=== PATIENT | female | born 1950 | race Caucasian/White ===

== ENCOUNTER 2016-10-18 18:26 | Inpatient (IN) | payer MEDICARE, MEDICAID ==
[~2016-10-18] VITALS: Ht 170.2 cm; Wt 103.4 kg
[~2016-10-18 18:26] MED LIST: ACET325T53 PO; ATOR20TA PO; BLOO-360 IN; CALC500T63 PO; CARV6.252 PO; CICL6.6S5 TP; DIGO250T16 PO; DOCU-170 PO; HYDR-3326 PO; HYDR-552 PO; INSU100V10 SQ; LIDO30AD10 TD; MAG-55 PO; MULT-70 PO; NIFE30TA91 PO; OLME40TA3 PO; PANT40TA2 PO; RIVA10TA PO; SENN-2 PO; TRAM50TA PO
[2016-10-18 19:15] LABS: ABG BASE EXCESS 6.9 mmol/L; ABG HCO3 31.6 mmol/L; ABG PH 7.464 (7.350-7.450); ABG PO2 63.7 mmHg (75.0-100.0); ABG SITE RIGHT RADIAL; ABG TOTAL HEMOGLOBIN 12.7 G/dL (12.0-16.0); COHb 1.1 % (0.5-1.5); MetHb 0.2 % (0.0-1.5); O2Hb 92.1 % (94.0-97.0)
[2016-10-18] MEDS ORDERED: methylPREDNISolone SOD SUCC 125 MG/2 ML VIAL IV ONE (19:15)
[2016-10-18] MEDS ORDERED: METRONIDAZOLE 500 MG/NS 100ML 100 ML IV ONE ×2 (19:15→20:52)
[2016-10-18] MEDS ORDERED: VANCOMYCIN IV 1,000 MG in IV DEXTROSE 5% 250 ML IV ONE (19:15)
[2016-10-18] MEDS ORDERED: LEVOFLOXACIN 750MG/D5W 150 ML IV ONE ×2 (19:15→19:37)
[2016-10-18] MEDS ORDERED: QUET100T PO (19:27)
[2016-10-18] MEDS ORDERED: DEXTROSE 50% IV (19:27)
[2016-10-18] MEDS ORDERED: ALBU2.5V13 IH (19:27)
[2016-10-18] MEDS ORDERED: ERYTHROMYCIN PO (19:27)
[2016-10-18] MEDS ORDERED: MAGN400T6 PO (19:27)
[2016-10-18] MEDS ORDERED: INSU100C4 SQ ×2 (19:27)
[2016-10-18] MEDS ORDERED: INSU100I5 SQ ×2 (19:27)
[2016-10-18] MEDS ORDERED: CITA20TA19 PO (19:27)
[2016-10-18] MEDS ORDERED: VALS40TA4 PO (19:27)
[2016-10-18] MEDS ORDERED: LORA-258 PO (19:27)
[2016-10-18] MEDS ORDERED: ACET-2154 PO (19:27)
[2016-10-18] MEDS ORDERED: [UNRECOGNIZED DRUG - CODE] PO (19:27)
[2016-10-18] MEDS ORDERED: MAGN400O4 PO (19:27)
[2016-10-18] MEDS ORDERED: TRAZ-144 PO (19:27)
[2016-10-18] MEDS ORDERED: ZOLP5TAB2 PO (19:27)
[2016-10-18] MEDS ORDERED: RANI150C4 PO (19:27)
[2016-10-18] MEDS ORDERED: LORA-114 PO (19:27)
[2016-10-18] MEDS ORDERED: NIFE30TA2 PO (19:27)
[2016-10-18] MEDS ORDERED: GABA600T PO (19:27)
[2016-10-18] MEDS ORDERED: CALC-272 PO (19:27)
[2016-10-18] MEDS ORDERED: methylPREDNISolone SOD SUCC 125 MG/2 ML VIAL ONE (19:33)
[2016-10-18] MEDS ORDERED: VANCOMYCIN IV 200 ML ONE (19:37)
[2016-10-18 19:44] LABS: BASOPHILS % (AUTO) 0.3 % (0.0-2.0); EOSINOPHILS % (AUTO) 0.1 % (0.0-7.0); HEMATOCRIT 38.9 % (31.2-41.9); HEMOGLOBIN 12.9 g/dL (10.9-14.3); LYMPHOCYTES # (AUTO) 0.5 K/uL (20.0-40.0); LYMPHOCYTES % (AUTO) 3.9 % (20.5-51.5); MEAN CORPUSCULAR HEMOGLOBIN 29.9 uug (24.7-32.8); MEAN CORPUSCULAR HGB CONC 33 g/dL (32.3-35.6); MEAN CORPUSCULAR VOLUME 89.8 fL (75.5-95.3); MONOCYTES # (AUTO) 0.8 K/uL (2.0-10.0); MONOCYTES % (AUTO) 6.8 % (0.0-11.0); NEUTROPHILS # (AUTO) 10.7 K/uL (1.8-8.9); NEUTROPHILS % (AUTO) 88.9 % (38.5-71.5); PLATELET COUNT (AUTO) 290 K/uL (179-408); RED BLOOD CELL COUNT(AUTO) 4.33 MIL/uL (3.63-4.92); RED CELL DISTRIBUTION WIDTH 12.3 % (12.3-17.7)
[2016-10-18 19:52] LABS: CALCIUM 9.4 mg/dL (8.5-10.1); POTASSIUM 4.5 mmol/L (3.5-5.1)
[2016-10-18 19:58] LABS: BAND % (MANUAL) 8 % (0-10); LYMPHOCYTES % (MANUAL) 5 % (20-40); MONOCYTES % (MANUAL) 10 % (2-10); NEUTROPHILS % (MANUAL) 77 % (42-75)
[2016-10-18 19:59] LABS: PLATELET ESTIMATE ADEQUATE; TROPONIN I < 0.017 ng/mL (0.00-0.056)
[2016-10-18 20:02] LABS: LACTIC ACID 1.1 mmol/L (0.4-2.0)
[2016-10-18 20:04] LABS: ALBUMIN 2.3 g/dL (3.4-5.0); BILIRUBIN,DIRECT 0.2 mg/dL (0.0-0.2); BILIRUBIN,TOTAL 0.6 mg/dL (0.2-1.0); TOTAL PROTEIN, SERUM 8.4 g/dL (6.4-8.2)
[2016-10-18 22:07] LABS: ABG HCO3 23.8 mmol/L; ABG PCO2 36.1 mmHg (35.0-45.0); ABG PH 7.437 (7.350-7.450); ABG PO2 211.6 mmHg (75.0-100.0); ABG SITE RIGHT RADIAL; ABG TOTAL HEMOGLOBIN 13.3 G/dL (12.0-16.0); COHb 0.9 % (0.5-1.5); MetHb 0.3 % (0.0-1.5); O2Hb 98.6 % (94.0-97.0); VENT MODE BIPAP
--- NOTE | 2016-10-18 22:11 | NUR ---
Call placed to [facility] for panel call.
[2016-10-18] MEDS: IV NORMAL SALINE 1000 ML BAG IV ONE ×2 (22:15→23:34)
--- NOTE | 2016-10-18 22:28 | NUR ---
PLACED PATIENT ON BIPAP, ORDERED BY DR. POLLOCK. SETTINGS 12/5, RATE 12, FIO2 100%. PROTECTA GEL IS PLACED ON PATIENT, MASK ADJUSTED, ALARMS ON AND AUDIBLE. TITRATED FIO2 TO 50% AFTER ABG, 211.6 PO2. WILL CONTINUE TO MONITOR PATIENT.
[2016-10-18] MEDS ORDERED: INSULIN REGULAR, HUMAN 300 UNITS/3 ML VIAL SQ PRN (22:30)
[2016-10-18] MEDS ORDERED: INSULIN REGULAR, HUMAN 300 UNIT/3 ML VIAL SQ PRN (22:30)
[2016-10-18] MEDS ORDERED: LEVOFLOXACIN 500 MG/D5W 100 ML IV SCH (22:30)
[2016-10-18] MEDS ORDERED: ENOXAPARIN SODIUM 40 MG/0.4 ML DISP.SYRIN SQ SCH (22:30)
[2016-10-18] MEDS ORDERED: ONDANSETRON 4 MG/2 ML VIAL IV PRN (22:30)
[2016-10-18] MEDS ORDERED: MAGNESIUM HYDROXIDE 30 ML LIQUID UDC PO PRN (22:30)
[2016-10-18] MEDS ORDERED: Z GUARD REMEDY PASTE 57 GM TUBE TOP PRN (22:30)
[2016-10-18] MEDS ORDERED: ACETAMINOPHEN 325 MG TABLET PO PRN (22:30)
[2016-10-18] MEDS ORDERED: DEXTROSE 50% 50 ML DISP.SYRIN IV PRN ×2 (22:30→23:30)
[2016-10-18] MEDS ORDERED: TEMAZEPAM 7.5 MG CAPSULE PO PRN (22:30)
[2016-10-18] MEDS ORDERED: LORATADINE 10 MG TABLET PO SCH (22:45)
[2016-10-18] MEDS ORDERED: CALCIUM CARBONATE 500 MG TAB.CHEW PO PRN (22:45)
[2016-10-18] MEDS ORDERED: IPRATROPIUM BROMIDE 0.5 MG/2.5 ML NEBU NEB PRN (22:45)
[2016-10-18] MEDS ORDERED: LORAZEPAM 0.5 MG TABLET PO SCH (22:45)
--- NOTE | 2016-10-18 22:53 | NUR ---
Pt. admitted to CCU , under care of Dr. Browne. Dx: [place] PNA Belongs List completed
[2016-10-18 23:20] VITALS: BP 138/61
--- NOTE | 2016-10-18 23:35 | NUR ---
Spoke to Dr. Browne for clarification of admission orders. First dose of Levaquin to start tomorrow night 10/19 at 2100 since it was first administered in ER this evening at approximately 2100. OK to DC normal saline bolus of 3,[address] Edwards, ER-MD, and to continue maintenance fluids as ordered when admitted to CCU. Accu-checks to be done q6hrs due to NPO status beginning at 10/19 at 0000
--- NOTE | 2016-10-18 23:43 | NUR ---
TRANSPORTED PT FROM ER TO CCU W/ NON REBREATHER MASK AT 15L. PLACED BACK ON BIPAP. NO COMPLICATIONS DURING AND AFTER TRANSPORT. SPO2 95%. ORAL CARE DONE. GAVE REPORT TO TOMASA AKHTAR. HERMILO WILL CONTINUE TO MONITOR PATIENT.
[2016-10-19] VITALS (22 sets, daily range): BP systolic 106–159; BP diastolic 42–113
[2016-10-19] MEDS ORDERED: IOHEXOL 350 100 ML INFUS..BTL ONE (00:16)
[2016-10-19] MEDS ORDERED: IV NORMAL SALINE 250 ML IV ONE (00:16)
[2016-10-19] MEDS: BLOOD SUGAR DIAGNOSTIC 1 EACH STRIP VI SCH ×5 (00:58→23:32)
[2016-10-19] MEDS: INSULIN REGULAR, HUMAN 300 UNIT/3 ML VIAL SQ PRN ×6 (01:00→23:33)
[2016-10-19] MEDS ORDERED: ENOXAPARIN SODIUM 40 MG/0.4 ML DISP.SYRIN SQ ONE (01:09)
[2016-10-19] MEDS: HYDROCODONE/APAP 5-325MG TABLET PO PRN ×3 (01:10→17:05)
[2016-10-19] MEDS ORDERED: LORAZEPAM 0.5 MG TABLET ONE (01:18)
[2016-10-19] MEDS ORDERED: HYDROCODONE/APAP 5-325MG TABLET ONE (01:19)
[2016-10-19] MEDS: IPRATROPIUM BROMIDE 0.5 MG/2.5 ML NEBU NEB SCH ×4 (01:50→19:09)
[2016-10-19] MEDS: ALBUTEROL SULFATE 2.5 MG/3 ML NEBU NEB SCH ×2 (01:50→07:17)
[2016-10-19] MEDS ORDERED: IPRATROPIUM BROMIDE 0.5 MG/2.5 ML NEBU ONE (01:51)
[2016-10-19] MEDS ORDERED: INSULIN REGULAR, HUMAN 300 UNIT/3 ML VIAL SQ ONE (02:00)
--- NOTE | 2016-10-19 02:00 | NUR ---
Notified MD of critically high blood glucose level (including re-check) as well as persistent high critical blood sugar level 1 hour post-insulin administration. Orders received and implemented. See eMAR.
--- NOTE | 2016-10-19 02:28 | NUR ---
Removed from pyxis: Lovenox 40 mg at 10/19 0109 Ativan 0.5 mg 10/19 0118 [place] 5-325 tab 10/19 at 0119 Administered as ordered. See eMAR
--- NOTE | 2016-10-19 03:16 | NUR ---
Despite numerous attempts to convince patient to allow Bender Catheter insertion, patient continues to refuse. Education provided of risks/benefits, patient still continues to refuse.
[2016-10-19] MEDS ORDERED: MEROPENEM 1 G VIAL IV ONE (03:34)
[2016-10-19 05:19] LABS: BASOPHILS % (AUTO) 0.1 % (0.0-2.0); EOSINOPHILS # (AUTO) 0.1 K/uL (0.0-0.7); HEMATOCRIT 40.2 % (31.2-41.9); HEMOGLOBIN 13.5 g/dL (10.9-14.3); LYMPHOCYTES # (AUTO) 0.4 K/uL (20.0-40.0); LYMPHOCYTES % (AUTO) 4.3 % (20.5-51.5); MEAN CORPUSCULAR HEMOGLOBIN 30.3 uug (24.7-32.8); MEAN CORPUSCULAR HGB CONC 34 g/dL (32.3-35.6); MEAN CORPUSCULAR VOLUME 90.5 fL (75.5-95.3); MONOCYTES # (AUTO) 0.1 K/uL (2.0-10.0); MONOCYTES % (AUTO) 1.3 % (0.0-11.0); NEUTROPHILS # (AUTO) 9.6 K/uL (1.8-8.9); NEUTROPHILS % (AUTO) 93.3 % (38.5-71.5); PLATELET COUNT (AUTO) 331 K/uL (179-408); RED BLOOD CELL COUNT(AUTO) 4.44 MIL/uL (3.63-4.92); RED CELL DISTRIBUTION WIDTH 12.8 % (12.3-17.7); WHITE BLOOD COUNT (AUTO) 10.2 K/uL (3.8-11.8)
[2016-10-19 05:33] LABS: ALBUMIN 2.2 g/dL (3.4-5.0); BILIRUBIN,TOTAL 0.5 mg/dL (0.2-1.0); CALCIUM 9.2 mg/dL (8.5-10.1); CREATININE 1.3 mg/dL (0.6-1.3); MAGNESIUM 3.2 mg/dL (1.8-2.4); PHOSPHOROUS 4.4 mg/dL (2.5-4.9); TOTAL PROTEIN, SERUM 8.5 g/dL (6.4-8.2)
[2016-10-19 05:54] LABS: DIGOXIN 3.1 ng/mL (0.9-2.0)
[2016-10-19] MEDS ORDERED: MEROPENEM IV SCH (06:00)
[2016-10-19] MEDS ORDERED: DEXTROSE 5% IV SCH (06:00)
--- NOTE | 2016-10-19 07:20 | NUR ---
report received from Brannon HICKMAN. 66 y old female. here for pneumonia. patient awake, able to erbalize needs. on BIPAP machine for desaturation and hypoxemia. afebrile. IV fluid infusing at 75ml/hr via right hand IV site. is incontinent of urine. diaper on. ekg sinus rhythm, bp stable. Addendum: 10/19/16 at 1441 by MELLY WATTS RN Amended: Links added.
--- NOTE | 2016-10-19 07:29 | NUR ---
Pt rec'd on BIPAP settings IPAP 12, EPAP 5, resp. rate 12 and FIO2-50%. No resp. distress noted at this time. BVM at bedside. Pt to be continuously monitored throughout the shift. BIPAP Vision alarm parameters have been checked and remain audible.
[2016-10-19] MEDS ORDERED: BLOOD SUGAR DIAGNOSTIC 1 EACH STRIP VI SCH ×3 (07:30→20:00)
--- NOTE | 2016-10-19 07:30 | NUR ---
seen by dr austin md inserted a midline catheter #20 via right upper arm. orders received. aware of patient's high blood sugars. Addendum: 10/19/16 at 1444 by MELLY WATTS RN Amended: Links added.
[2016-10-19] MEDS ORDERED: Z GUARD REMEDY PASTE 57 GM TUBE TOP PRN (08:00)
--- NOTE | 2016-10-19 08:00 | NUR ---
placed on 1st step select air mattress, repositioned. bony prominences off loaded Addendum: 10/19/16 at 1508 by MELLY WATTS RN Amended: Links added. Addendum: 10/19/16 at 1513 by MELLY WATTS RN Amended: Links added. Addendum: 10/19/16 at 1515 by MELLY WATTS RN Amended: Links added.
--- NOTE | 2016-10-19 08:30 | NUR ---
seen by dr manriquez. orders received. suárez catheter inserted aseptically/ urine spec sent to lab for tests. us of the kidneys was also ordered by . Addendum: 10/19/16 at 1513 by MELLY WATTS RN Amended: Links added. Addendum: 10/19/16 at 1515 by MELLY WATTS RN Amended: Links added.
[2016-10-19] MEDS ORDERED: DIGOXIN 250 MCG TABLET PO SCH (09:00)
[2016-10-19] MEDS ORDERED: Medication Not On Formulary EA (Gabapentin (Neurontin) 600 MG) PO SCH (09:00)
[2016-10-19] MEDS: PANTOPRAZOLE SODIUM 40 MG VIAL IV SCH (09:13)
[2016-10-19] MEDS: DOCUSATE SODIUM 100 MG CAPSULE PO SCH ×2 (09:13→17:05)
[2016-10-19] MEDS: CARVEDILOL 6.25 MG TABLET PO SCH ×2 (09:14→17:00)
[2016-10-19] MEDS: GABAPENTIN 300 MG CAPSULE PO SCH ×3 (09:14→16:59)
[2016-10-19] MEDS: Z GUARD REMEDY PASTE 57 GM TUBE TOP SCH ×2 (09:15→21:41)
[2016-10-19] MEDS: CALCIUM CARB/VITAMIN D 250MG-125UNITS TABLET PO SCH ×2 (09:15→17:05)
[2016-10-19] MEDS: VALSARTAN 40 MG TABLET PO SCH (09:15)
[2016-10-19] MEDS ORDERED: LORATADINE 10 MG TABLET PO PRN (09:34)
[2016-10-19 09:39] LABS: ABG BASE EXCESS -3.8 mmol/L; ABG HCO3 20.3 mmol/L; ABG PCO2 33.8 mmHg (35.0-45.0); ABG PH 7.396 (7.350-7.450); ABG PO2 57.8 mmHg (75.0-100.0); ABG SITE RIGHT RADIAL; ABG TOTAL HEMOGLOBIN 11.9 G/dL (12.0-16.0); COHb 0.8 % (0.5-1.5); MetHb 0.5 % (0.0-1.5); O2Hb 86.6 % (94.0-97.0); VENT MODE Nasal Cannula
--- NOTE | 2016-10-19 09:49 | NUR ---
Per ABG results pt placed on 10L S/M. RN NR aware and notified.
[2016-10-19] MEDS: LIDOCAINE 5% PATCH TD SCH (10:14)
--- NOTE | 2016-10-19 10:16 | NUR ---
levemir insulin 20units started at/ accucheck 428 Addendum: 10/19/16 at 1452 by MELLY WATTS RN Amended: Links added. Addendum: 10/19/16 at 1457 by MELLY WATTS RN Amended: Links added. Addendum: 10/19/16 at 1504 by MELLY WATTS RN Amended: Links added. Addendum: 10/19/16 at 1508 by MELLY WATTS RN Amended: Links added. Addendum: 10/19/16 at 1513 by MELLY WATTS RN Amended: Links added. Addendum: 10/19/16 at 1515 by MELLY WATTS RN Amended: Links added.
[2016-10-19] MEDS: INSULIN DETEMIR 300 UNIT/3 ML CARTRIDGE SQ SCH ×2 (10:20→21:40)
[2016-10-19] MEDS ORDERED: LORAZEPAM 0.5 MG TABLET PO PRN (10:45)
--- NOTE | 2016-10-19 11:00 | NUR ---
seen by dr manley. orders received. o2 sat to maintain >92%. patient on 10l mask Addendum: 10/19/16 at 1504 by MELLY WATTS RN Amended: Links added. Addendum: 10/19/16 at 1508 by MELLY WATTS RN Amended: Links added. Addendum: 10/19/16 at 1513 by MELLY WATTS RN Amended: Links added. Addendum: 10/19/16 at 1515 by MELLY WATTS RN Amended: Links added.
--- NOTE | 2016-10-19 11:33 | NUR ---
Clinical Pharmacy Note: Vancomycin Dosing per Pharmacy Subjective: Vancomycin IV to start on this 66 yo female for PNA (waiting for MD note). Patient received vancomycin 1gm IVPB x1 yesterday at 1930 in ED Objective: BUN 47/Scr 1.3 WBC 10.2 Temperature 97.6 ht 5'7'' wt 229lb Assessment/Plan: Will start vancomycin 1500mg IVB q24h for predicted vancomycin trough level of 15 mcg/ml at steady state. First dose is due today at 1600. Will draw a vancomycin trough level prior to the 4th dose of vancomycin (level not yet ordered). Will monitor renal function and adjust vancomycin dose, if needed, should renal function change significantly. Will follow daily.
--- NOTE | 2016-10-19 12:33 | NUR ---
accucheck 436, covered with 10 units humulin R sq/ dr avila informed of current order for mild insulin sliding scale. MD changed order to aggressive insulin sliding scale Addendum: 10/19/16 at 1457 by MELLY WATTS RN Amended: Links added. Addendum: 10/19/16 at 1504 by MELLY WATTS RN Amended: Links added. Addendum: 10/19/16 at 1508 by MELLY WATTS RN Amended: Links added. Addendum: 10/19/16 at 1513 by MELLY WATTS RN Amended: Links added. Addendum: 10/19/16 at 1515 by MELLY WATTS RN Amended: Links added.
[2016-10-19 12:50] LABS: *BILIRUBIN,URIN NEGATIVE (NEGATIVE); *BLOOD, URINE NEGATIVE (NEGATIVE); *CLARITY,URINE CLEAR (CLEAR); *COLOR,URINE YELLOW (YELLOW); *KETONES,URINE TRACE (NEGATIVE); *PROTEIN,URINE NEGATIVE (NEGATIVE); *UROBILINOGEN,URINE 0.2 E.U./dl (NORMAL); LEUKOCYTE ESTERASE ,URINE NEGATIVE (NEGATIVE); NITRITE, URINE NEGATIVE (NEGATIVE); PH,URINE 5.5 (5.0-8.0); UGLUCOSE TRACE (NEGATIVE)
[2016-10-19] MEDS: CITALOPRAM 20 MG TABLET PO SCH (12:51)
[2016-10-19 13:00] LABS: *CREATININE,URINE 68.7 mg/dL (30-125); *URINE TOTAL PROTEIN RANDOM 19.6 mg/dL (<150/24HR)
[2016-10-19] MEDS: QUETIAPINE FUMARATE 100 MG TABLET PO SCH ×2 (13:01→17:06)
[2016-10-19] MEDS ORDERED: INSULIN REGULAR, HUMAN 300 UNIT/3 ML VIAL SQ PRN (13:30)
[2016-10-19] MEDS ORDERED: DEXTROSE 50% 50 ML DISP.SYRIN IV PRN ×2 (13:30→20:00)
[2016-10-19] MEDS: ALBUTEROL SULFATE 2.5 MG/ 0.5 ML NEBU NEB SCH ×2 (13:32→19:09)
[2016-10-19] MEDS ORDERED: MEROPENEM 1 G in IV NORMAL SALINE 100 ML IV SCH (13:36)
[2016-10-19 13:40] LABS: BACTERIA,URINE FEW /HPF (NONE SEEN); RBC,URINE 0-3 /HPF (0-3); SQUAMOUS EPITHELIAL CELL,UR MODERATE /HPF (NONE SEEN); WBC,URINE 0-3 /HPF (0-3)
[2016-10-19] MEDS: MEROPENEM 1 G in IV NORMAL SALINE 100 ML IV SCH ×2 (13:51→22:44)
--- NOTE | 2016-10-19 14:55 | NUR ---
Pt titrated down to 6LPM simple mask at this time. SpO2-97%. No resp. distress noted.
--- NOTE | 2016-10-19 15:14 | NUR ---
abgs done on 5l nc. po2 57 sat 86%. placed on simple mask 10liters/min Addendum: 10/19/16 at 1515 by MELLY WATTS RN Amended: Links added.
--- NOTE | 2016-10-19 16:00 | NUR ---
complete pm care done, maribel applied to sacral area for protection. Addendum: 10/19/16 at 1857 by MELLY WATTS RN Amended: Links added. Addendum: 10/19/16 at 185 by MELLY WATTS RN Amended: Links added.
[2016-10-19] MEDS: VANCOMYCIN IV 1,500 MG in IV DEXTROSE 5% 500 ML IV SCH (16:07)
[2016-10-19] MEDS: RIVAROXABAN 10 MG TABLET PO SCH (17:02)
[2016-10-19] MEDS ORDERED: LEVOFLOXACIN 500 MG/D5W 500 MG in PREMIXED 1 EACH IV SCH (18:00)
--- NOTE | 2016-10-19 18:00 | NUR ---
call to dr austin teixeira persistent hyperglycemia. orders received to increase accucheck to q4hrs, levimir to 20 units am and hs. 20 units humulin given for accucheck 470. Addendum: 10/19/16 at 1859 by MELLY WATTS RN Amended: Links added.
[2016-10-19] MEDS: IV NS 1000 ML 1,000 ML IV PRN ×2 (19:10)
--- NOTE | 2016-10-19 19:14 | NUR ---
Patient received on 6Lpm O2 via SM. Increased to 8L Spo2 94% per order to maintain above 92%. Facemask treatment administered. Will continue to monitor.
[2016-10-19] MEDS ORDERED: ZOLPIDEM 5 MG TABLET PO SCH (21:00)
[2016-10-19] MEDS ORDERED: ENOXAPARIN SODIUM 40 MG/0.4 ML DISP.SYRIN SQ SCH (21:00)
[2016-10-19] MEDS ORDERED: INSULIN DETEMIR 300 UNIT/3 ML CARTRIDGE SQ SCH (21:00)
[2016-10-19] MEDS: ATORVASTATIN 20 MG TABLET PO SCH (21:34)
[2016-10-19] MEDS: TRAZODONE 50 MG TABLET PO SCH (21:35)
[2016-10-19] MEDS: SENNOSIDES/DOCUSATE SODIUM TABLET PO SCH (21:35)
[2016-10-19] MEDS: LEVOFLOXACIN 500 MG/D5W 100 ML IV SCH (21:35)
[2016-10-19] MEDS: NIFEdipine XL 30 MG TABSR PO SCH (21:41)
[2016-10-20] VITALS (12 sets, daily range): BP systolic 101–124; BP diastolic 44–61
[2016-10-20] MEDS: ALBUTEROL SULFATE 2.5 MG/ 0.5 ML NEBU NEB SCH ×4 (01:06→19:30)
[2016-10-20] MEDS: IPRATROPIUM BROMIDE 0.5 MG/2.5 ML NEBU NEB SCH ×4 (01:07→19:30)
[2016-10-20] MEDS: BLOOD SUGAR DIAGNOSTIC 1 EACH STRIP VI SCH ×5 (04:08→20:00)
[2016-10-20] MEDS: INSULIN REGULAR, HUMAN 300 UNIT/3 ML VIAL SQ PRN ×5 (04:10→21:41)
[2016-10-20 05:38] LABS: BASOPHILS # (AUTO) 0.1 K/uL (0.0-8.0); BASOPHILS % (AUTO) 1.1 % (0.0-2.0); HEMATOCRIT 34.4 % (31.2-41.9); HEMOGLOBIN 11.3 g/dL (10.9-14.3); LYMPHOCYTES # (AUTO) 0.5 K/uL (20.0-40.0); LYMPHOCYTES % (AUTO) 4.6 % (20.5-51.5); MEAN CORPUSCULAR HEMOGLOBIN 29.3 uug (24.7-32.8); MEAN CORPUSCULAR HGB CONC 33 g/dL (32.3-35.6); MEAN CORPUSCULAR VOLUME 89.5 fL (75.5-95.3); MONOCYTES # (AUTO) 0.6 K/uL (2.0-10.0); MONOCYTES % (AUTO) 5.3 % (0.0-11.0); NEUTROPHILS # (AUTO) 9.8 K/uL (1.8-8.9); PLATELET COUNT (AUTO) 308 K/uL (179-408); RED BLOOD CELL COUNT(AUTO) 3.84 MIL/uL (3.63-4.92); RED CELL DISTRIBUTION WIDTH 12.4 % (12.3-17.7)
[2016-10-20 05:39] LABS: ALBUMIN 1.7 g/dL (3.4-5.0); BILIRUBIN,TOTAL 0.2 mg/dL (0.2-1.0); CALCIUM 8.3 mg/dL (8.5-10.1); CREATININE 1.2 mg/dL (0.6-1.3); MAGNESIUM 3.3 mg/dL (1.8-2.4); PHOSPHOROUS 3.7 mg/dL (2.5-4.9); POTASSIUM 5.1 mmol/L (3.5-5.1); TOTAL PROTEIN, SERUM 6.8 g/dL (6.4-8.2)
[2016-10-20] MEDS: MEROPENEM 1 G in IV NORMAL SALINE 100 ML IV SCH ×3 (06:20→22:00)
[2016-10-20] MEDS: ALBUTEROL SULFATE 2.5 MG/3 ML NEBU NEB PRN ×2 (07:04→12:32)
--- NOTE | 2016-10-20 08:00 | NUR ---
Dr. Browne in the unit to examine patient, report given see orders.
[2016-10-20] MEDS: PANTOPRAZOLE SODIUM 40 MG VIAL IV SCH (08:28)
[2016-10-20] MEDS: DOCUSATE SODIUM 100 MG CAPSULE PO SCH ×2 (08:28→16:18)
[2016-10-20] MEDS: CARVEDILOL 6.25 MG TABLET PO SCH ×2 (08:29→16:19)
[2016-10-20] MEDS: CITALOPRAM 20 MG TABLET PO SCH (08:29)
[2016-10-20] MEDS: GABAPENTIN 300 MG CAPSULE PO SCH ×3 (08:29→16:18)
[2016-10-20] MEDS: QUETIAPINE FUMARATE 100 MG TABLET PO SCH ×2 (08:30→16:18)
[2016-10-20] MEDS: CALCIUM CARB/VITAMIN D 250MG-125UNITS TABLET PO SCH ×2 (08:30→16:19)
[2016-10-20] MEDS ORDERED: GUAIFENESIN/CODEINE 5 ML LIQUID UDC PO PRN (08:30)
[2016-10-20] MEDS: Z GUARD REMEDY PASTE 57 GM TUBE TOP SCH ×2 (08:30→21:35)
[2016-10-20] MEDS: VALSARTAN 40 MG TABLET PO SCH (08:36)
[2016-10-20] MEDS: INSULIN DETEMIR 300 UNIT/3 ML CARTRIDGE SQ SCH ×2 (08:43→21:40)
[2016-10-20] MEDS: LIDOCAINE 5% PATCH TD SCH (08:56)
[2016-10-20 09:21] LABS: ABG BASE EXCESS 0.1 mmol/L; ABG HCO3 25.2 mmol/L; ABG PCO2 42.9 mmHg (35.0-45.0); ABG PH 7.387 (7.350-7.450); ABG PO2 72.4 mmHg (75.0-100.0); ABG SITE RIGHT RADIAL; ABG TOTAL HEMOGLOBIN 12.3 G/dL (12.0-16.0); MetHb 0.4 % (0.0-1.5); O2Hb 93.2 % (94.0-97.0); VENT MODE COOL AEROSOL 40%
--- NOTE | 2016-10-20 11:07 | NUR ---
Dr. [facility] in the unit to examine patient, report given, see orders.
--- NOTE | 2016-10-20 11:43 | NUR ---
Report given to linn Rn. Patient taken up to room 209. AAOx3. left resting comfortably on room 209 receiving rn and deputy prosecuting attorney. in the room.
--- NOTE | 2016-10-20 12:00 | NUR ---
Report received.Pt received via bed from CCU.Pt is awake,alert,oriented x4.Moves all extremities.Denies pain,discomfort.O2 at 6liters via simple facial mask tolerated well.SR on telemetry.Oriented to new room,call light.Plan of care updated with patient.
[2016-10-20] MEDS: HYDROCODONE/APAP 5-325MG TABLET PO PRN ×2 (13:29→21:24)
--- NOTE | 2016-10-20 14:55 | NUR ---
Clinical Pharmacy Note: Vancomycin Dosing per Pharmacy Subjective: Vancomycin IV to start on this 66 yo female for PNA (waiting for MD note). Objective: BUN 59/Scr 1.2 WBC 11 Temperature 98.7 ht 5'7'' wt 229lb Assessment/Plan: Will continue vancomycin 1500mg IVB q24h for predicted vancomycin trough level of 15 mcg/ml at steady state. Second dose was due today at 1600. Will draw a vancomycin trough level prior to the 4th dose of vancomycin (level not yet ordered). Will monitor renal function and adjust vancomycin dose, if needed, should renal function change significantly. Will follow daily.
[2016-10-20] MEDS: VANCOMYCIN IV 1,500 MG in IV DEXTROSE 5% 500 ML IV SCH (16:16)
[2016-10-20 17:41] LABS: CALCIUM 8.3 mg/dL (8.5-10.1); CREATININE 1.2 mg/dL (0.6-1.3); POTASSIUM 4.5 mmol/L (3.5-5.1)
[2016-10-20] MEDS: ATORVASTATIN 20 MG TABLET PO SCH (21:16)
[2016-10-20] MEDS: LACTOBACILLUS RHAMNOSUS GG 1 EACH CAPSULE PO SCH (21:16)
[2016-10-20] MEDS: NIFEdipine XL 30 MG TABSR PO SCH (21:17)
[2016-10-20] MEDS: RIVAROXABAN 10 MG TABLET PO SCH (21:19)
[2016-10-20] MEDS: LEVOFLOXACIN 500 MG/D5W 100 ML IV SCH (21:19)
[2016-10-20] MEDS: SENNOSIDES/DOCUSATE SODIUM TABLET PO SCH (21:24)
[2016-10-20] MEDS: TRAZODONE 50 MG TABLET PO SCH (21:34)
[2016-10-21] MEDS: IPRATROPIUM BROMIDE 0.5 MG/2.5 ML NEBU NEB SCH ×4 (00:55→19:21)
[2016-10-21] MEDS: ALBUTEROL SULFATE 2.5 MG/ 0.5 ML NEBU NEB SCH ×4 (00:55→19:21)
[2016-10-21 04:00] VITALS: BP 144/95
[2016-10-21] MEDS: BLOOD SUGAR DIAGNOSTIC 1 EACH STRIP VI SCH ×7 (04:18→23:55)
--- NOTE | 2016-10-21 06:00 | NUR ---
PT ALERT,ORIENTED, DENIES ANY PAIN, PRODUCTIVE COUGH ALL NIGHT WITH HHN ATC, SAAVEDRA DRAINING WELL, NO LEAKING NOTED ,BUT PT C/O OF FEELING WET AROUND THE CATHETER. CONTINUE WITH IV FLUIDS, SINUS RHYTHM ON MONITOR.ALL NEEDS ATTENDED,REPOSITIONED FOR COMFORT.CALL LIGHT AT REACHED KEPT ON MASK 6 LITERS NO ACUTE DISTRESS.
[2016-10-21 06:09] LABS: BASOPHILS % (AUTO) 0.1 % (0.0-2.0); EOSINOPHILS % (AUTO) 0.2 % (0.0-7.0); HEMATOCRIT 34.6 % (31.2-41.9); HEMOGLOBIN 11.6 g/dL (10.9-14.3); LYMPHOCYTES # (AUTO) 0.7 K/uL (20.0-40.0); MEAN CORPUSCULAR HEMOGLOBIN 30.1 uug (24.7-32.8); MEAN CORPUSCULAR HGB CONC 34 g/dL (32.3-35.6); MEAN CORPUSCULAR VOLUME 89.9 fL (75.5-95.3); MONOCYTES % (AUTO) 8.6 % (0.0-11.0); NEUTROPHILS # (AUTO) 9.5 K/uL (1.8-8.9); NEUTROPHILS % (AUTO) 85.1 % (38.5-71.5); PLATELET COUNT (AUTO) 329 K/uL (179-408); RED BLOOD CELL COUNT(AUTO) 3.85 MIL/uL (3.63-4.92); RED CELL DISTRIBUTION WIDTH 12.9 % (12.3-17.7); WHITE BLOOD COUNT (AUTO) 11.2 K/uL (3.8-11.8)
[2016-10-21] MEDS: PANTOPRAZOLE SODIUM 40 MG TABLET.DR PO SCH (06:44)
[2016-10-21] MEDS: MEROPENEM 1 G in IV NORMAL SALINE 100 ML IV SCH ×3 (06:45→22:24)
[2016-10-21] MEDS: GABAPENTIN 300 MG CAPSULE PO SCH ×3 (08:42→17:34)
[2016-10-21] MEDS: QUETIAPINE FUMARATE 100 MG TABLET PO SCH ×2 (08:42→17:34)
[2016-10-21] MEDS: DOCUSATE SODIUM 100 MG CAPSULE PO SCH ×2 (08:43→17:34)
[2016-10-21] MEDS: VALSARTAN 40 MG TABLET PO SCH (08:43)
[2016-10-21] MEDS: LACTOBACILLUS RHAMNOSUS GG 1 EACH CAPSULE PO SCH ×2 (08:43→20:42)
[2016-10-21] MEDS: CALCIUM CARB/VITAMIN D 250MG-125UNITS TABLET PO SCH ×2 (08:43→17:34)
[2016-10-21] MEDS: CARVEDILOL 6.25 MG TABLET PO SCH ×2 (08:44→17:34)
[2016-10-21] MEDS: CITALOPRAM 20 MG TABLET PO SCH (08:44)
[2016-10-21] MEDS: Z GUARD REMEDY PASTE 57 GM TUBE TOP SCH ×2 (08:45→20:42)
[2016-10-21] MEDS: LIDOCAINE 5% PATCH TD SCH (08:45)
[2016-10-21] MEDS: INSULIN DETEMIR 300 UNIT/3 ML CARTRIDGE SQ SCH ×2 (08:53→20:32)
[2016-10-21] MEDS: INSULIN REGULAR, HUMAN 300 UNIT/3 ML VIAL SQ PRN ×4 (09:17→20:35)
[2016-10-21] MEDS: ALBUTEROL SULFATE 2.5 MG/3 ML NEBU NEB PRN (10:17)
[2016-10-21] MEDS: methylPREDNISolone SOD SUCC 40 MG/ML VIAL IV SCH (10:25)
[2016-10-21 12:00] VITALS: BP 133/63
[2016-10-21] MEDS: HYDROCODONE/APAP 5-325MG TABLET PO PRN ×2 (12:06→18:32)
--- NOTE | 2016-10-21 12:28 | NUR ---
PT REQUESTED METAMUCIL, OK PER DR. WYATT
[2016-10-21] MEDS: PSYLLIUM SEED PACKET PO SCH (12:54)
[2016-10-21 15:48] LABS: *BILIRUBIN,URIN NEGATIVE (NEGATIVE); *BLOOD, URINE 3+ (NEGATIVE); *CLARITY,URINE SLIGHTLY HAZY (CLEAR); *COLOR,URINE YELLOW (YELLOW); *KETONES,URINE NEGATIVE (NEGATIVE); *PROTEIN,URINE NEGATIVE (NEGATIVE); *UROBILINOGEN,URINE 0.2 E.U./dl (NORMAL); NITRITE, URINE NEGATIVE (NEGATIVE); UGLUCOSE NEGATIVE (NEGATIVE)
[2016-10-21 15:49] VITALS: BP 144/73
[2016-10-21 15:49] LABS: LEUKOCYTE ESTERASE ,URINE TRACE (NEGATIVE)
[2016-10-21 15:55] LABS: BACTERIA,URINE RARE /HPF (NONE SEEN); RBC,URINE 20-50 /HPF (0-3); SQUAMOUS EPITHELIAL CELL,UR FEW /HPF (NONE SEEN)
[2016-10-21] MEDS: RIVAROXABAN 10 MG TABLET PO SCH (17:39)
[2016-10-21 19:00] VITALS: BP 149/73
--- NOTE | 2016-10-21 19:04 | NUR ---
PT IS LAYING IN BED COMFORTABLY. MASK IS ON 10L. NO S/S OF RESPIRATORY DISTRESS NOTED. NO PAIN REPORTED. MIDLINE IS INTACT/PATENT. ALL SAFETY NEEDS ARE MET. SAAVEDRA IS DRAINS YELLOW CLEAR URINE.
--- NOTE | 2016-10-21 20:00 | NUR ---
RECEIVED PATIENT ASLEEP ,ON O2 10L/M VIA SIMPLE MASK, SPO2 95-98% , HOB ELEVATED,PATIENT COUGHING PRODUCTIVELY, BEDSIDE PULSE OX MONITOR ,SR,SB ON TELE MONITOR.MONITOR QT INTERVAL WNL
[2016-10-21] MEDS: LEVOFLOXACIN 500 MG/D5W 100 ML IV SCH (20:41)
[2016-10-21] MEDS: SENNOSIDES/DOCUSATE SODIUM TABLET PO SCH (20:42)
[2016-10-21] MEDS: ATORVASTATIN 20 MG TABLET PO SCH (20:42)
[2016-10-21] MEDS: NIFEdipine XL 30 MG TABSR PO SCH (20:43)
[2016-10-21] MEDS: TRAZODONE 50 MG TABLET PO SCH (20:43)
[2016-10-21] MEDS: GUAIFENESIN/DEXTROMETHORPHAN 5 ML UDC PO PRN (23:56)
--- NOTE | 2016-10-22 | NUR ---
PATIENT SLEEP INTERMITTENTLY, GOOD URINE OUT PUT,CONTINUE MONITOR BLOOD SUGAR Q 4H,PATIENT DENIES PAIN/DISCOMFORT,ROBITUSSIN MEDICATED FOR COUGH WITH GOOD RESULT.
[2016-10-22] MEDS: INSULIN REGULAR, HUMAN 300 UNIT/3 ML VIAL SQ PRN ×7 (00:02→23:54)
[2016-10-22 00:16] VITALS: BP 127/66
[2016-10-22] MEDS: ALBUTEROL SULFATE 2.5 MG/ 0.5 ML NEBU NEB SCH ×4 (01:20→20:06)
[2016-10-22] MEDS: IPRATROPIUM BROMIDE 0.5 MG/2.5 ML NEBU NEB SCH ×4 (01:20→20:06)
[2016-10-22] MEDS: BLOOD SUGAR DIAGNOSTIC 1 EACH STRIP VI SCH ×6 (04:13→23:52)
[2016-10-22 04:26] VITALS: BP 147/71
[2016-10-22] MEDS: GUAIFENESIN/DEXTROMETHORPHAN 5 ML UDC PO PRN ×3 (05:29→21:27)
[2016-10-22] MEDS: MEROPENEM 1 G in IV NORMAL SALINE 100 ML IV SCH ×3 (05:47→22:07)
[2016-10-22] MEDS: HYDROCODONE/APAP 5-325MG TABLET PO PRN (05:56)
[2016-10-22] MEDS: PANTOPRAZOLE SODIUM 40 MG TABLET.DR PO SCH (05:56)
--- NOTE | 2016-10-22 06:00 | NUR ---
PATIENT C/O PERINEAL PAIN, AND BURNING SENSATION,NOR[place] 5-325 MG 1 TAB ADMIN FOR PAIN.PATIENT BREATHING BETTER ,STILL WITH WET COUGH,CONTINUE O2 10 L/M VIA SIMPLE MASK.
[2016-10-22 07:03] LABS: CALCIUM 8.1 mg/dL (8.5-10.1); CREATININE 0.8 mg/dL (0.6-1.3); POTASSIUM 4.6 mmol/L (3.5-5.1)
[2016-10-22 07:47] LABS: EOSINOPHILS % (AUTO) 0.3 % (0.0-7.0); HEMATOCRIT 35.7 % (31.2-41.9); HEMOGLOBIN 11.8 g/dL (10.9-14.3); LYMPHOCYTES # (AUTO) 0.9 K/uL (20.0-40.0); LYMPHOCYTES % (AUTO) 12.1 % (20.5-51.5); MEAN CORPUSCULAR HEMOGLOBIN 29.9 uug (24.7-32.8); MEAN CORPUSCULAR HGB CONC 33 g/dL (32.3-35.6); MEAN CORPUSCULAR VOLUME 90.7 fL (75.5-95.3); MONOCYTES # (AUTO) 0.7 K/uL (2.0-10.0); MONOCYTES % (AUTO) 10.4 % (0.0-11.0); NEUTROPHILS # (AUTO) 5.5 K/uL (1.8-8.9); NEUTROPHILS % (AUTO) 77.2 % (38.5-71.5); PLATELET COUNT (AUTO) 300 K/uL (179-408); RED BLOOD CELL COUNT(AUTO) 3.94 MIL/uL (3.63-4.92); RED CELL DISTRIBUTION WIDTH 12.9 % (12.3-17.7)
[2016-10-22 07:49] LABS: WHITE BLOOD COUNT (AUTO) 7.1 K/uL (3.8-11.8)
[2016-10-22] MEDS: Z GUARD REMEDY PASTE 57 GM TUBE TOP SCH ×2 (09:00→21:28)
[2016-10-22] MEDS: CARVEDILOL 6.25 MG TABLET PO SCH ×2 (09:00→17:41)
[2016-10-22] MEDS: methylPREDNISolone SOD SUCC 40 MG/ML VIAL IV SCH (10:50)
[2016-10-22] MEDS: DOCUSATE SODIUM 100 MG CAPSULE PO SCH ×2 (10:51→17:40)
[2016-10-22] MEDS: CITALOPRAM 20 MG TABLET PO SCH (10:51)
[2016-10-22] MEDS: LACTOBACILLUS RHAMNOSUS GG 1 EACH CAPSULE PO SCH ×2 (10:52→21:21)
[2016-10-22] MEDS: VALSARTAN 40 MG TABLET PO SCH (10:53)
[2016-10-22] MEDS: CALCIUM CARB/VITAMIN D 250MG-125UNITS TABLET PO SCH ×2 (10:54→17:41)
[2016-10-22] MEDS: QUETIAPINE FUMARATE 100 MG TABLET PO SCH ×2 (10:54→17:41)
[2016-10-22] MEDS: PSYLLIUM SEED PACKET PO SCH (10:54)
[2016-10-22] MEDS: GABAPENTIN 300 MG CAPSULE PO SCH ×3 (10:54→17:41)
[2016-10-22] MEDS: LIDOCAINE 5% PATCH TD SCH (10:56)
[2016-10-22] MEDS: INSULIN DETEMIR 300 UNIT/3 ML CARTRIDGE SQ SCH ×2 (10:59→20:36)
[2016-10-22 11:43] VITALS: BP 125/72
[2016-10-22 15:28] VITALS: BP 148/76
[2016-10-22] MEDS: RIVAROXABAN 10 MG TABLET PO SCH (17:42)
[2016-10-22 19:52] VITALS: BP 146/74
[2016-10-22] MEDS ORDERED: LEVOFLOXACIN 500 MG TABLET PO SCH (21:00)
[2016-10-22] MEDS: ATORVASTATIN 20 MG TABLET PO SCH (21:21)
[2016-10-22] MEDS: TRAZODONE 50 MG TABLET PO SCH (21:22)
[2016-10-22] MEDS: SENNOSIDES/DOCUSATE SODIUM TABLET PO SCH (21:28)
[2016-10-22] MEDS: NIFEdipine XL 30 MG TABSR PO SCH (21:28)
[2016-10-23] MEDS: ALBUTEROL SULFATE 2.5 MG/ 0.5 ML NEBU NEB SCH ×4 (00:47→19:38)
[2016-10-23] MEDS: IPRATROPIUM BROMIDE 0.5 MG/2.5 ML NEBU NEB SCH ×4 (00:48→19:38)
[2016-10-23] MEDS: HYDROCODONE/APAP 5-325MG TABLET PO PRN (01:55)
[2016-10-23] MEDS: BLOOD SUGAR DIAGNOSTIC 1 EACH STRIP VI SCH ×4 (04:32→16:18)
[2016-10-23] MEDS: INSULIN REGULAR, HUMAN 300 UNIT/3 ML VIAL SQ PRN ×3 (04:34→17:13)
[2016-10-23 05:19] VITALS: BP 143/73
--- NOTE | 2016-10-23 06:00 | NUR ---
end of shift report:patient tolerated o2 at 4l/m via nasal cannula,no sob, still occ cough non productively, Robitussin Dm given ,received breathing tx by RT with good result.patient c/o remains feeling tired/weakness.
[2016-10-23] MEDS: PANTOPRAZOLE SODIUM 40 MG TABLET.DR PO SCH (06:37)
[2016-10-23] MEDS: MEROPENEM 1 G in IV NORMAL SALINE 100 ML IV SCH ×2 (06:37→14:16)
[2016-10-23] MEDS: GUAIFENESIN/DEXTROMETHORPHAN 5 ML UDC PO PRN ×2 (07:43→18:47)
[2016-10-23 07:50] LABS: BASOPHILS % (AUTO) 0.1 % (0.0-2.0); EOSINOPHILS # (AUTO) 0.1 K/uL (0.0-0.7); EOSINOPHILS % (AUTO) 0.7 % (0.0-7.0); LYMPHOCYTES # (AUTO) 1.3 K/uL (20.0-40.0); LYMPHOCYTES % (AUTO) 15.3 % (20.5-51.5); MEAN CORPUSCULAR HGB CONC 33 g/dL (32.3-35.6); MEAN CORPUSCULAR VOLUME 89.9 fL (75.5-95.3); MONOCYTES # (AUTO) 0.7 K/uL (2.0-10.0); MONOCYTES % (AUTO) 8.1 % (0.0-11.0); NEUTROPHILS # (AUTO) 6.3 K/uL (1.8-8.9); NEUTROPHILS % (AUTO) 75.8 % (38.5-71.5); PLATELET COUNT (AUTO) 328 K/uL (179-408); RED BLOOD CELL COUNT(AUTO) 4.01 MIL/uL (3.63-4.92); RED CELL DISTRIBUTION WIDTH 12.7 % (12.3-17.7); WHITE BLOOD COUNT (AUTO) 8.4 K/uL (3.8-11.8)
[2016-10-23 08:08] LABS: CALCIUM 8.7 mg/dL (8.5-10.1); CREATININE 0.7 mg/dL (0.6-1.3); POTASSIUM 4.9 mmol/L (3.5-5.1)
[2016-10-23] MEDS: methylPREDNISolone SOD SUCC 40 MG/ML VIAL IV SCH (08:48)
[2016-10-23] MEDS: INSULIN DETEMIR 300 UNIT/3 ML CARTRIDGE SQ SCH (08:51)
[2016-10-23] MEDS: CITALOPRAM 20 MG TABLET PO SCH (09:37)
[2016-10-23] MEDS: DOCUSATE SODIUM 100 MG CAPSULE PO SCH ×2 (09:37→17:01)
[2016-10-23] MEDS: VALSARTAN 40 MG TABLET PO SCH (09:38)
[2016-10-23] MEDS: LACTOBACILLUS RHAMNOSUS GG 1 EACH CAPSULE PO SCH (09:38)
[2016-10-23] MEDS: PSYLLIUM SEED PACKET PO SCH (09:38)
[2016-10-23] MEDS: CARVEDILOL 6.25 MG TABLET PO SCH ×2 (09:38→17:03)
[2016-10-23] MEDS: LIDOCAINE 5% PATCH TD SCH (09:39)
[2016-10-23] MEDS: GABAPENTIN 300 MG CAPSULE PO SCH ×3 (09:39→17:03)
[2016-10-23] MEDS: QUETIAPINE FUMARATE 100 MG TABLET PO SCH ×2 (09:39→17:03)
[2016-10-23] MEDS: Z GUARD REMEDY PASTE 57 GM TUBE TOP SCH (09:39)
[2016-10-23] MEDS: CALCIUM CARB/VITAMIN D 250MG-125UNITS TABLET PO SCH ×2 (09:39→17:03)
[2016-10-23 11:13] VITALS: BP 129/70
--- NOTE | 2016-10-23 12:56 | NUR ---
Discharge: The patient's son would like for her to return to [facility][[address] [facility],[address];[phone]] once medically cleared. She has been residing at [facility] for about a year and a half. Spoke to Hermilo from [facility] and they will re-admit the patient once stable.
[2016-10-23 15:16] VITALS: BP 135/80
[2016-10-23] MEDS ORDERED: DIGO125T5 PO (16:35)
[2016-10-23] MEDS ORDERED: ALBU2.5V7 NEB (16:35)
[2016-10-23] MEDS ORDERED: HYDR-3326 PO (16:35)
[2016-10-23] MEDS ORDERED: LACT1CAP57 PO (16:35)
[2016-10-23] MEDS ORDERED: LORA-114 PO (16:35)
[2016-10-23] MEDS ORDERED: IPRA0.2S6 NEB (16:35)
[2016-10-23] MEDS ORDERED: Psyllium Seed PO (16:35)
[2016-10-23] MEDS ORDERED: METH4TAB3 PO (16:35)
[2016-10-23] MEDS ORDERED: INSU100V10 SQ (16:49)
[2016-10-23] MEDS ORDERED: LEVO500T15 PO (16:49)
[2016-10-23] MEDS: RIVAROXABAN 10 MG TABLET PO SCH (17:05)
--- NOTE | 2016-10-23 19:00 | NUR ---
REPORT CALLED TO ARNALDO HICKMAN AT [facility]. MIDLINE IV D/C'D. TRANSFERRED VIA AMBULANCE
[2016-10-23 19:39] VITALS: BP 145/75
== END 2016-10-23 20:09 | DRG 871 ==
LOC: ER 18:29 → CCU 22:29 → TELE 10-20 11:45 → MED 10-22 11:42
PROVIDERS: ADMIT Family Medicine; ATTEND Family Medicine
PROC: 5A09357 Assistance with Respiratory Ventilation, Less than 24 Consecutive Hours, Continuous Positive Airway Pressure (ICD-10-PCS; principal; 2016-10-18)
PROC: 05H533Z Insertion of Infusion Device into Right Subclavian Vein, Percutaneous Approach (ICD-10-PCS; 2016-10-20)
PROC: B546ZZA Ultrasonography of Right Subclavian Vein, Guidance (ICD-10-PCS; 2016-10-20)
DX: A41.9 Sepsis, unspecified organism (principal); J15.6 Pneumonia due to other Gram-negative bacteria; E43 Unspecified severe protein-calorie malnutrition; G92 Toxic encephalopathy; N17.0 Acute kidney failure with tubular necrosis; J96.01 Acute respiratory failure with hypoxia; E22.2 Syndrome of inappropriate secretion of antidiuretic hormone; D68.59 Other primary thrombophilia; E03.9 Hypothyroidism, unspecified; K21.9 Gastro-esophageal reflux disease without esophagitis; E11.65 Type 2 diabetes mellitus with hyperglycemia; E04.9 Nontoxic goiter, unspecified; E66.01 Morbid (severe) obesity due to excess calories; E78.5 Hyperlipidemia, unspecified; F32.9 Major depressive disorder, single episode, unspecified; F41.9 Anxiety disorder, unspecified; F25.9 Schizoaffective disorder, unspecified; D63.8 Anemia in other chronic diseases classified elsewhere; I48.2 Chronic atrial fibrillation; K59.00 Constipation, unspecified; Z79.01 Long term (current) use of anticoagulants; Z88.0 Allergy status to penicillin; Z88.2 Allergy status to sulfonamides; I50.9 Heart failure, unspecified; I11.0 Hypertensive heart disease with heart failure; Z91.010 Allergy to peanuts; G47.33 Obstructive sleep apnea (adult) (pediatric); T46.0X5A Adverse effect of cardiac-stimulant glycosides and drugs of similar action, initial encounter; Y92.129 Unspecified place in nursing home as the place of occurrence of the external cause; Z68.35 Body mass index [BMI] 35.0-35.9, adult; Z96.653 Presence of artificial knee joint, bilateral; R65.20 Severe sepsis without septic shock
CPT/HCPCS: 36415; 36600; 70030-TC; 71010; 71275; 76770; 83605; 83735; 83970; 84100; 84156; 84300; 85025; 87040; 87070; 87086; 87400; 93005; 94640; 94660; 94664; 97001; A4217; A4663; C9113; J1650; J1815; J1956; J2185; J2920; J2930; J3370; J3490; J3590; J7030; J7050; J7060; Q9967